=== PATIENT | female | born 1950 | race African-American/Black ===

== ENCOUNTER 2022-02-16 11:40 | Emergency (ER) | payer MEDICARE, OTHER ==
[~2022-02-16] VITALS: Ht 162.6 cm; Wt 59.0 kg
[2022-02-16] MEDS ORDERED: LORAZEPAM 1MG TABLET PO ONE (12:00)
[2022-02-16 12:23] LABS: BASOPHILS % 0.6 % (0.0-2.0); EOSINOPHILS % 0.2 % (0.0-5.0); HEMATOCRIT. 36.4 % (36.0-48.0); LYMPHOCYTES % 26.2 % (20.0-50.0); MEAN CORPUSCULAR HEMOGLOBIN 26.1 pg (28.0-32.0); MEAN CORPUSCULAR VOLUME 79.4 fL (81.0-99.0); MEAN PLATELET VOLUME 7.7 fl (7.4-10.4); MONOCYTES % 7.2 % (2.0-8.0); NEUTROPHILS % 65.8 % (40.0-76.0); PLATELET 449 x1000/uL (130-400); RED BLOOD CELL COUNT 4.58 mill/uL (4.2-5.4); RED CELL DISTRIBUTION WIDTH 17.8 % (11.6-14.6)
[2022-02-16 12:30] LABS: CHLORIDE 107 mEq/L (98-107)
[2022-02-16] MEDS ORDERED: POTASSIUM CHLORIDE 20MEQ TABLET SR PO NR (16:15)
[2022-02-16] MEDS ORDERED: LORAZEPAM 1MG TABLET PO NR (16:45)
[2022-02-16] MEDS ORDERED: HYDRALAZINE 20MG/ML VIAL IV NR (16:45)
[2022-02-16 18:29] VITALS: BP 141/90
[2022-02-17] MEDS ORDERED: ASPIRIN 81MG TABLET PO SCH (09:00)
== END 2022-02-16 18:43 | disposition short-term general hospital (02) ==
LOC: ER 11:40 → EDBEDREQ 14:12 → EDBEDREQTM 14:12 → CANBEDREQ 15:36 → ER 18:43
DX: R07.89 Other chest pain (principal); R00.2 Palpitations; E87.6 Hypokalemia; R20.0 Anesthesia of skin; F41.0 Panic disorder [episodic paroxysmal anxiety]; F20.9 Schizophrenia, unspecified; F31.9 Bipolar disorder, unspecified; Z85.118 Personal history of other malignant neoplasm of bronchus and lung; Z85.51 Personal history of malignant neoplasm of bladder; Z90.6 Acquired absence of other parts of urinary tract
CPT/HCPCS: 36415; 71045; 80053; 83880; 84484; 85025; 93005; 96374; 99285; J0360